=== PATIENT | female | born 1960 | race Caucasian/White ===

== ENCOUNTER 2020-09-20 15:50 | Emergency (ER) | payer OTHER ==
[~2020-09-20] VITALS: Ht 152.4 cm; Wt 58.5 kg
[2020-09-20 16:17] VITALS: BP 132/79
--- NOTE | 2020-09-20 16:29 | NUR ---
Patient to lobby for next available bed.
[2020-09-20] MEDS ORDERED: BACITRACIN OINT 500 UNITS/GM PKT TP ONE (17:20)
[2020-09-20] MEDS ORDERED: CEPH-588 PO (17:21)
[2020-09-20] MEDS ORDERED: BACI1PAC6 TP (17:21)
--- NOTE | 2020-09-20 17:40 | NUR ---
No nursing interventions completed.
--- NOTE | 2020-09-20 17:53 | NUR ---
Patient discharged with v/s stable. Written and verbal after care instructions given and explained. Patient alert, oriented and verbalized understanding of instructions. Ambulatory with steady gait. All questions addressed prior to discharge. ID band removed. Patient advised to follow up with PMD. Rx of Bacitracin Ointment, Keflex given. Patient educated on indication of medication including possible reaction and side effects. Opportunity to ask questions provided and answered.
== END 2020-09-20 17:53 | disposition home or self-care (01) ==
LOC: MED 15:50
DX: S60.561A Insect bite (nonvenomous) of right hand, initial encounter (principal); L03.113 Cellulitis of right upper limb; I10 Essential (primary) hypertension; E07.9 Disorder of thyroid, unspecified; Z79.899 Other long term (current) drug therapy; W57.XXXA Bitten or stung by nonvenomous insect and other nonvenomous arthropods, initial encounter; Y93.89 Activity, other specified; Y92.89 Other specified places as the place of occurrence of the external cause; Y99.8 Other external cause status
CPT/HCPCS: 99283

== ENCOUNTER 2020-11-18 18:04 | Emergency (ER) | payer OTHER ==
[~2020-11-18] VITALS: Ht 157.5 cm; Wt 59.0 kg
[~2020-11-18 18:04] MED LIST: BACI1PAC6 TP; CEPH-588 PO
[2020-11-18 18:26] VITALS: BP 140/60
[2020-11-18] MEDS ORDERED: DEXAMETHASONE 10 MG/ML VIAL IM ONE (21:05)
[2020-11-18] MEDS ORDERED: GABAPENTIN 300 MG CAP PO ONE (21:05)
[2020-11-18] MEDS ORDERED: PRED20TA5 PO (21:13)
[2020-11-18] MEDS ORDERED: GABA300C1 PO (21:13)
[2020-11-18 21:47] VITALS: BP 133/88
--- NOTE | 2020-11-18 21:50 | NUR ---
Patient discharged with v/s stable. Written and verbal after care instructions given and explained. Patient alert, oriented and verbalized understanding of instructions. Ambulatory with steady gait. All questions addressed prior to discharge. ID band removed. Patient advised to follow up with PMD. Rx of prednisone and gabapentin given. Patient educated on indication of medication including possible reaction and side effects. Opportunity to ask questions provided and answered.
== END 2020-11-18 21:50 | disposition home or self-care (01) ==
LOC: MED 18:04
DX: M41.86 Other forms of scoliosis, lumbar region (principal); I10 Essential (primary) hypertension; Z86.39 Personal history of other endocrine, nutritional and metabolic disease; Z79.899 Other long term (current) drug therapy; Z79.1 Long term (current) use of non-steroidal anti-inflammatories (NSAID)
CPT/HCPCS: 96372; 99283; J1100